=== PATIENT | male | born 1990 | race Caucasian/White ===

== ENCOUNTER → 2020-07-25 | Outpatient (CLI) | payer OTHER ==
[2020-07-25 08:19] LABS: HEMATOCRIT 45.8 % (39.0-53.0); HEMOGLOBIN 15.6 g/dL (13.0-17.5)
[2020-07-25 20:13] LABS: TESTOSTERONE TOTAL 460 ng/dL (264-916)
== END ==
LOC: LAB 07:37
PROVIDERS: ATTEND Internal Medicine
DX: G43.109 Migraine with aura, not intractable, without status migrainosus (principal); E29.1 Testicular hypofunction
CPT/HCPCS: 36415; 84270; 84403; 85014; 85018